=== PATIENT | male | born 1970 | race Caucasian/White ===

== ENCOUNTER 2019-01-02 11:12 | Inpatient (IN) | payer OTHER ==
[~2019-01-02 11:12] MED LIST: Buffered Lidocaine 1% SYRIN* 1 ML/SYRINGE INTRADERM ONE; Dexamethasone IV* 4 MG/ML 1 ML (4 MG) IV SLOW PU ONE; Famotidine IV* 10 MG/ML 2 ML (20 mg) IV ONE; Gabapentin CAP(*) 300 MG PO ONE; Lactated Ringers 1000 ML Bag* 1,000 ML IV SCH; celeCOXIB CAP* 200 MG PO ONE
--- OUTSIDE RECORDS SUMMARY | 2019-01-02 11:16 | XMS REPORT | Continuity of Care Document ---
:1970 External Reference #:[id number] Author Name Jovanna Prajapati Care Team Providers Name Role Phone Ratna Naik MD Primary Care Physician Unavailable Payers Date Identification Numbers Payment Provider Subscriber Policy Number: [id number] [employer] Name: [id number] [address] PayID: [id number] [place] [address] Problems Active Problems Provider Date Carcinoma of colon Ratna Naik MD Onset: 12/21/2018 Family History Date Family Member(s) Observation Comments General Lupus General Multiple Sclerosis (MS) General Cancer General Kidney Disease Social History Type Date Description Comments Sex Unknown Marital Status 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 ETOH Use Currently consumes 14 drinks per week alcohol Tobacco Use Start: Unknown End: Patient is a former Unknown smoker Recreational Drug Use Denies Drug Use Smoking Status Reviewed: 12/28/18 Patient is a former smoker Exercise Type/Frequency Exercises regularly Allergies, Adverse Reactions, Alerts Active Allergies Reaction Severity Comments Date NKDA 08/26/2018 MSG 12/27/2018 Sulphites 12/27/2018 Vital Signs Date Vital Result Comment 12/28/2018 1:12pm Height 70 inches 5'10" Weight 155.00 lb Heart Rate 76 /min BP Systolic 124 mmHg BP Diastolic 74 mmHg Respiratory Rate 16 /min Body Temperature 98.7 F BMI (Body Mass Index) 22.2 kg/m2 08/26/2018 1:22pm Weight 160.50 lb Heart Rate 73 /min BP Systolic 111 mmHg BP Diastolic 70 mmHg Body Temperature 97.4 F O2 % BldC Oximetry 100 % Results Test Date Facility Test Result H/L Range Note Laboratory test 12/20/2018 [facility] Surgical SEE RESULT 1 , [address] [place] [address] [phone] CBC Auto Diff 08/26/2018 [facility] White Blood 9.3 10^3/uL N 3.5-10.[address] [place] [address] [phone] Red Blood Count 4.47 10^6/uL N 4.00-5.40 Hemoglobin 12.9 g/dL Low 14.0-18.0 Hematocrit 39 % Low 42-52 Mean Corpuscular Volume 88 fL N 80-94 Mean Corpuscular Hemoglobin 29 pg N 27-31 Mean Corpuscular HGB Conc 33 g/dL N 31-36 Red Cell Distribution Width 14 % N 10.5-15 Platelet Count 340 10^3/uL N 150-450 Mean Platelet Volume 9.3 fL N 7.4-10.4 Abs Neutrophils 5.5 10^3/uL N 1.5-7.7 Abs Lymphocytes 2.8 10^3/uL N 1.0-4.8 Abs Monocytes 0.7 10^3/uL N 0-0.8 Abs Eosinophils 0.2 10^3/uL N 0-0.6 Abs Basophils 0.1 10^3/uL N 0-0.2 Abs Nucleated RBC 0 10^3/uL Granulocyte % 59.6 % Lymphocyte % 29.9 % Monocyte % 7.6 % Eosinophil % 1.8 % Basophil % 1.1 % Nucleated Red Blood Cells % 0.1 Comp Metabolic Panel 08/26/2018 [facility] Sodium 138 mmol/L N 135-[address] [place] [address] [phone] Potassium 4.4 mmol/L N 3.5-5.0 Chloride 104 mmol/L N 101-111 Co2 Carbon Dioxide 28 mmol/L N 22-32 Anion Gap 6 mmol/L N 2-11 Glucose 92 mg/dL N 70-100 Blood Urea Nitrogen 15 mg/dL N 6-24 Creatinine 0.86 mg/dL N 0.67-1.17 BUN/Creatinine Ratio 17.4 N 8-20 Calcium 9.7 mg/dL N 8.6-10.3 Total Protein 6.7 g/dL N 6.4-8.9 Albumin 4.4 g/dL N 3.2-5.2 Globulin 2.3 g/dL N 2-4 Albumin/Globulin Ratio 1.9 N 1-3 Total Bilirubin 0.30 mg/dL N 0.2-1.0 Alkaline Phosphatase 49 U/L N 34-104 Alt 17 U/L N 7-52 Ast 30 U/L N 13-39 Egfr Non- 95.7 >60 Egfr 115.8 >60 3 1 STAT [id number] SEE RESULT BELOW Name: LELE LINTON : [address]: Kel Juarez DO Acct: [id number] Unit: [id number] AGE: 48 Location: [facility] Re12/20/18 SEX: M Status: DEP REF SPEC: [id number] ESTHER: 12/20/18- SUBM DR: Kel Juarez DO REQ: [id number] RECD: 12/20/18-1233 STATUS: KARYN WASHINGTON DR: Ratna Naik MD _ ORDERED: LEVEL 4, IMMUNO-FIRST, IMMUNO-ADDL/4 COMMENTS: STAT [id number] ADDENDUM Immunohistochemical stains, with appropriately reacting controls, were performed with the following results: MLH-1 intact PMS-2 intact MSH-2 intact MSH-6 intact BRAF negative There is no evidence of mismatch repair protein deficiency or BRAF overexpression. 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 -- Carcinoma represents at least intramucosal carcinoma. -- Correlation with clinical and colonoscopic findings is recommended. Comment: Immunochemical stains for mismatch repair proteins and Braf are pending and will be reported in an addendum. CONTINUED ON NEXT PAGE DEPARTMENT OF PATHOLOGY, [address] [place] [address] Alan Villareal M.D. Director [facility] # [id number] RUN DATE: 12/22/18 [facility] LAB LIVE PAGE 2 Patient: LELE LINTON [id number] (Continued) GROSS DESCRIPTION (Continued) GROSS DESCRIPTION The specimen is received in formalin labeled, Biopsy Sigmoid Colon Mass at 30 cm, and consists of a 0.7 x 0.7 by up to 0.2 cm aggregate of olivas-pink irregular soft tissue fragments which is submitted entirely in one cassette. Signed by and Reported on: Alan Villareal MD 04/03 0938 END OF REPORT DEPARTMENT OF PATHOLOGY, [address] [place] [address] Alan Villareal M.D. Director [facility] # [id number] 3 Because ethnic data is not always readily available, this report includes an eGFR for both -Americans and non- Americans. The National Kidney Disease Education Program (NKDEP) does not endorse the use of the MDRD equation for patients that are not between the ages of 18 and 70, are , have extremes of body size, muscle mass, or nutritional status, or are non- or non-. According to the National Kidney Foundation, irrespective of diagnosis, the stage of the disease is based on the level of kidney function: Stage Description GFR(mL/min/1.73 m(2)) 1 Kidney damage with normal or decreased GFR 90 2 Kidney damage with mild decrease in GFR 60-89 3 Moderate decrease in GFR 30-59 4 Severe decrease in GFR 15-29 5 Kidney failure <15 (or dialysis) Procedures Date Code Description Status 12/20/2018 18880034 Colonoscopy Completed Encounters Type Date Location Provider Dx Diagnosis Office Visit 08/26/2018 [employer] Internal Ratna Naik MD K62.5 Hemorrhage of anus 1:20p Medicine and rectum A63.0 Anogenital (venereal) warts Plan of Treatment 08/26/2018 - Ratna Naik MDK62.5 Hemorrhage of anus and rectumReferral:Glenn Thorne MD, VrrcawjezociahbvR64.0 Anogenital (venereal) wartsReferral: Elva Huitron MD, Dermatology
[2019-01-02] MEDS ORDERED: Dexamethasone IV* 4 MG/ML 1 ML (4 MG) ONE (11:32)
[2019-01-02] MEDS ORDERED: celeCOXIB CAP* 200 MG ONE (11:32)
[2019-01-02] MEDS ORDERED: Famotidine IV* 10 MG/ML 2 ML (20 mg) ONE (11:32)
[2019-01-02] MEDS ORDERED: Gabapentin CAP(*) 300 MG ONE (11:32)
[2019-01-02] MEDS ORDERED: ceFOXitin 2 GM IVPREMIX* 2 GM/50 ML BAG ONE (11:32)
[2019-01-02] MEDS ORDERED: fentaNYL* 50 MCG/ML 5 ML VIAL (250 MCG VIAL) ONE (12:46)
[2019-01-02] MEDS ORDERED: Atracurium* 10 MG/ML 10 ML VIAL ONE (12:46)
[2019-01-02] MEDS ORDERED: Midazolam* 1 MG/ML 5 ML VIAL (5 MG) ONE (12:46)
[2019-01-02] MEDS ORDERED: Ketorolac INJ* 30 MG/ML 1 ML VIAL ONE ×2 (12:47→18:21)
[2019-01-02] MEDS ORDERED: Propofol* 10 MG/ML 20 ML BTL ONE (12:47)
[2019-01-02] MEDS ORDERED: Lidocaine 2% PF * 5 ML VIAL ONE (12:47)
[2019-01-02] MEDS ORDERED: Ondansetron INJ* 2 MG/ML VIAL ONE (12:47)
[2019-01-02] MEDS ORDERED: Bupivacaine 0.5%* 50 ML VIAL ONE (14:14)
[2019-01-02] MEDS ORDERED: HYDROmorphone INJ1* 1 MG/ML SYRINGE IV PRN (14:29)
[2019-01-02] MEDS ORDERED: Ondansetron INJ* 2 MG/ML VIAL IV PRN ×2 (14:29→16:24)
[2019-01-02] MEDS ORDERED: fentaNYL* 50 MCG/ML 2 ML VIAL (100 MCG VIAL) IV PRN (14:29)
[2019-01-02] MEDS ORDERED: Naloxone* 0.4 MG/ML 1 ML VIAL IV PRN (14:29)
[2019-01-02] MEDS ORDERED: DiMENhydriNATE IV* 50 MG/ML VIAL IV PUSH PRN (14:29)
[2019-01-02] MEDS ORDERED: Scopolamine 1.5 mg* PATCH TRANSDERM PRN (14:29)
[2019-01-02] MEDS ORDERED: fentaNYL* 50 MCG/ML 2 ML VIAL (100 MCG VIAL) ONE (14:51)
[2019-01-02] MEDS ORDERED: Bacitracin OINTMENT* 0.5% 0.5 oz TUBE ONE (16:06)
[2019-01-02] MEDS ORDERED: Acetaminophen TAB* 325 MG PO PRN (16:24)
[2019-01-02] MEDS ORDERED: oxyCODONE/Acetamin 5/325 MG* TAB PO PRN (16:24)
[2019-01-02] MEDS ORDERED: HYDROmorphone INJ1* 1 MG/ML SYRINGE ONE (18:20)
--- NOTE | 2019-01-02 20:59 | OP ---
DATE OF OPERATION: 01/02/19 - ROOM #331 DATE OF : 74 SURGEON: Christopher Ag MD. PRE-OP DIAGNOSIS: Sigmoid colon cancer. POST-OP DIAGNOSIS: Sigmoid colon cancer. OPERATIVE PROCEDURE: Laparoscopic hand assisted sigmoid colectomy with low anterior anastomosis. INDICATION FOR PROCEDURE: History of colon cancer of the sigmoid. Risks of surgery included, but not limited to, bleeding, infection, injury to intraabdominal contents including the bowel, the ureter, anastomotic leak, MO, pneumonia, PE, arrhythmia, even explained to the patient, who seemed to understand and agreed to the procedure, and all questions were answered. DESCRIPTION OF PROCEDURE: The patient was taken to the operating room and placed supine. Preoperative antibiotics had been given. After the successful induction of general endotracheal anesthesia, a Chris catheter was placed. The abdomen was prepped and draped in sterile fashion. He had been placed on a split table with the legs in a V position. A midline incision was made and carried down through the subcutaneous tissue. The peritoneal cavity was entered. A hand port was placed through the incision and a hand port gel top was applied. My left hand was placed through the hand report. Bowel was protected as a 12 mm suprapubic and right lower quadrant trocar was placed bluntly. Pneumoperitoneum was achieved at 15 mmHg. The abdomen was scanned. There was no obvious injury from entry or trocar placement. The sigmoid colon was palpated and obvious sigmoid tumor was noted. Colon was mobilized medially along the lateral peritoneal reflection. The ureter was identified and avoided. The bowel was divided at rectosigmoid junction using a stapler. The mesentery was taken back towards the inferior mesenteric artery and the proximal bowel was divided proximal to the palpable tumor. That mesentery was taken down towards the inferior mesenteric artery base. Bulky, mavis, and firm disease was noted traveling down the inferior mesenteric artery. This was divided using a stapler. The specimen was completely removed. The proximal colon was brought out and using a 25 mm EEA stapler, the anvil was placed in the proximal bowel and brought down into the pelvis and stapled with a 25 mm EEA staple. Anastomosis was performed. The pelvis was filled with saline. The proximal bowel was clamped with my fingers gently and a rigid sigmoidoscope placed 3 to 4 cm within the rectum. Insufflated the distal colon. There was no air leak around the anastomosis. The air was released from the rectum. The saline was aspirated out of the pelvis. The omentum was placed over the anastomosis. EBL was minimal for the case, less than 20 cc. I was able to palpate the liver. Few hard nodules were noted in the left lobe of the liver. Some bulky, periaortic mavis disease was palpable as well. The rest of the proximal colon felt normal, I could not appreciate any other mass. Scan of the abdomen showed no other obvious abnormality. The trocars were removed and pneumoperitoneum was released from the abdomen and the hand port was removed. The fascia was closed with a running #1 PDS suture. Marcaine was placed in the muscle and fascia around this closed incision. The wound was irrigated. The skin was closed with Monocryl at all sites and glue was applied to the skin. He tolerated the procedure well. He was extubated and taken to recovery room in stable condition. [id number]/CPS #: [id number] MTDD
[2019-01-02] MEDS: Heparin VIAL(*) 5000 UNITS/ML VIAL (FIVE THOUSAND) SUBCUT SCH (22:29)
[2019-01-03] MEDS: Lactated Ringers 1000 ML Bag* 1,000 ML IV SCH ×2 (04:23→14:15)
[2019-01-03] MEDS: HYDROmorphone INJ1* 1 MG/ML SYRINGE IV SLOW PU PRN ×3 (04:23→21:02)
[2019-01-03] MEDS: Ketorolac INJ* 30 MG/ML 1 ML VIAL IV PRN ×2 (04:24→21:05)
[2019-01-03 05:10] LABS: ABS Monocytes 1.3 10^3/ul (0-0.8); ABS Neutrophils 11.5 10^3/ul (1.5-7.7); Hematocrit 35 % (42-52); Hemoglobin 11.4 g/dL (14.0-18.0); Lymphocyte % 13.6 %; Mean Corpuscular HGB Conc 32 g/dL (31-36); Mean Corpuscular Hemoglobin 28 pg (27-31); Mean Corpuscular Volume 87 fL (80-94); Mean Platelet Volume 8.6 fL (7.4-10.4); Platelet Count 306 10^3/uL (150-450); Red Blood Count 4.07 10^6 /uL (4.18-5.48); Red Cell Distribution Width 14 % (10.5-15); White Blood Count 14.8 10^3/uL (3.5-10.8)
[2019-01-03 05:26] LABS: BUN/Creatinine Ratio 11.9 (8-20); Calcium 8.7 mg/dL (8.6-10.3); EGFR Non-African American 98.4 (>60); Potassium 4.3 mmol/L (3.5-5.0)
[2019-01-03] MEDS: Heparin VIAL(*) 5000 UNITS/ML VIAL (FIVE THOUSAND) SUBCUT SCH ×3 (07:05→21:14)
--- NOTE | 2019-01-03 13:02 | PN ---
<Maurice Nortno - Last Filed: 01/03/19 13:27> Progress Note - Progress Note Date of Service: 01/03/19 Note: S: Pt is POD#1 c/o some mild soreness surrounding the midline incision site; he has not had any pain medication since early this morning. He says he felt awkward asking his nurse for pain medication and also has some concerns about becoming dependent on opiates. He has not produced any flatus and says that he had some initial urinary leakage after having the catheter removed but has since had good urinary production and flow. He has been ambulating around the unit on his own. He denies fever, chest pain, shortness of breath, nausea or vomiting. O: Selected Entries 01/02/19 01/02/19 01/03/19 18:45 23:43 11:14 Temperature 98.3 F 100.2 F 97.5 F Pulse Rate 64 63 58 Respiratory 18 18 18 Rate Blood Pressure 138/94 121/78 130/86 (mmHg) O2 Sat by Pulse 100 99 100 Oximetry Patient on Room Yes Yes Air Intake & Output 01/01/19 01/02/19 01/03/19 01/04/19 06:59 06:59 06:59 06:59 Intake Total 2665 Output Total 1100 Balance 1565 Weight 156 lb 6.4 oz Intake: IV Fluids 2425 LR 975 NS 50ML, Cefoxitin 2G 50 lr 1400 Oral 240 Output: Urine 900 Chris 200 Other: # Bowel Movements 0 Exam: General: lying in bed, no acute distress. Heart: normal S1/S2 Lungs: clear & equal bilat, no wheezes, rales, rhonchi Abd: Suture sites appear clean, no signs of infection. Abd appears non- distended, + bowel sounds, tympanitic on right side. Tenderness on palpation without rigidity or guarding. A: POD #1 s/p sigmoid colectomy with low anastomosis; improving P: Continue clear liquid diet pain medication as needed Continue to ambulate as tolerated and use incentive spirometry <Pb Dempsey - Last Filed: 01/03/19 15:05> Progress Note - Progress Note Note: Patient seen with PA student, Sheldon Norton. I agree with the above note. Patient discussed w/ Dr. Ag. Labs noted: Laboratory Tests 01/03/19 04:56 WBC 14.8 H Hgb 11.4 L Hct 35 L Will repeat labs 01/04.
[2019-01-04] MEDS: HYDROmorphone INJ1* 1 MG/ML SYRINGE IV SLOW PU PRN ×2 (00:34→05:13)
[2019-01-04] MEDS: Lactated Ringers 1000 ML Bag* 1,000 ML IV SCH (00:36)
[2019-01-04] MEDS: Heparin VIAL(*) 5000 UNITS/ML VIAL (FIVE THOUSAND) SUBCUT SCH ×2 (05:11→14:39)
[2019-01-04] MEDS: Ketorolac INJ* 30 MG/ML 1 ML VIAL IV PRN (05:14)
[2019-01-04 06:30] LABS: ABS Eosinophils 0.3 10^3/ul (0-0.6); ABS Lymphocytes 2.6 10^3/ul (1.0-4.8); ABS Monocytes 0.8 10^3/ul (0-0.8); ABS Neutrophils 3.1 10^3/ul (1.5-7.7); Eosinophil % 4.5 %; Hematocrit 32 % (42-52); Hemoglobin 10.7 g/dL (14.0-18.0); Lymphocyte % 37.9 %; Mean Corpuscular HGB Conc 33 g/dL (31-36); Mean Corpuscular Hemoglobin 29 pg (27-31); Mean Corpuscular Volume 88 fL (80-94); Mean Platelet Volume 8.7 fL (7.4-10.4); Nucleated Red Blood Cells % 0.1; Platelet Count 283 10^3/uL (150-450); Red Blood Count 3.66 10^6 /uL (4.18-5.48); Red Cell Distribution Width 14 % (10.5-15); White Blood Count 6.9 10^3/uL (3.5-10.8)
[2019-01-04 06:42] LABS: BUN/Creatinine Ratio 12.3 (8-20); Calcium 8.5 mg/dL (8.6-10.3); EGFR Non-African American 115.7 (>60); Potassium 4.1 mmol/L (3.5-5.0)
--- NOTE | 2019-01-04 09:37 | PN ---
Progress Note - Progress Note Date of Service: 01/04/19 SOAP: Subjective: [] passing flatus, feeling "great", pod #2 Objective: [] Laboratory Last Values WBC 6.9 10^3/uL (3.5-10.8) 01/04/19 05:59 RBC 3.66 10^6 /uL (4.18-5.48) L 01/04/19 05:59 Hgb 10.7 g/dL (14.0-18.0) L 01/04/19 05:59 Hct 32 % (42-52) L 01/04/19 05:59 MCV 88 fL (80-94) 01/04/19 05:59 MCH 29 pg (27-31) 01/04/19 05:59 MCHC 33 g/dL (31-36) 01/04/19 05:59 RDW 14 % (10.5-15) 01/04/19 05:59 Plt Count 283 10^3/uL (150-450) 01/04/19 05:59 MPV 8.7 fL (7.4-10.4) 01/04/19 05:59 Neut % (Auto) 45.1 % 01/04/19 05:59 Lymph % (Auto) 37.9 % 01/04/19 05:59 [place] % (Auto) 11.8 % 01/04/19 05:59 Eos % (Auto) 4.5 % 01/04/19 05:59 Baso % (Auto) 0.7 % 01/04/19 05:59 Absolute Neuts (auto) 3.1 10^3/ul (1.5-7.7) 01/04/19 05:59 Absolute Lymphs (auto) 2.6 10^3/ul (1.0-4.8) 01/04/19 05:59 Absolute Monos (auto) 0.8 10^3/ul (0-0.8) 01/04/19 05:59 Absolute Eos (auto) 0.3 10^3/ul (0-0.6) 01/04/19 05:59 Absolute Basos (auto) 0.0 10^3/ul (0-0.2) 01/04/19 05:59 Absolute Nucleated RBC 0.0 10^3/ul 01/04/19 05:59 Nucleated RBC % 0.1 01/04/19 05:59 Sodium 139 mmol/L (135-145) 01/04/19 05:59 Potassium 4.1 mmol/L (3.5-5.0) 01/04/19 05:59 Chloride 105 mmol/L (101-111) 01/04/19 05:59 Carbon Dioxide 30 mmol/L (22-32) 01/04/19 05:59 Anion Gap 4 mmol/L (2-11) 01/04/19 05:59 BUN 9 mg/dL (6-24) 01/04/19 05:59 Creatinine 0.73 mg/dL (0.67-1.17) 01/04/19 05:59 Est GFR ( Amer) 140.0 (>60) 01/04/19 05:59 Est GFR (Non-Af Amer) 115.7 (>60) 01/04/19 05:59 BUN/Creatinine Ratio 12.3 (8-20) 01/04/19 05:59 Glucose 97 mg/dL (70-100) 01/04/19 05:59 Calcium 8.5 mg/dL (8.6-10.3) L 01/04/19 05:59 Temp Pulse Resp BP Pulse Ox 98.2 F 69 18 108/81 99 01/04/19 07:11 01/04/19 07:11 01/04/19 07:45 01/04/19 07:11 01/04/19 07:44 incisions CDI, absomen soft Assessment: []stable, doing well pod#2 Plan: []advance diet, dc to home after dinner, f/u office next week miralax daily, await path
[2019-01-04] MEDS ORDERED: Polyethylene Glycol 3350* 17 GM PACKET PO SCH (10:00)
[2019-01-04 11:30] VITALS: BP 101/76
--- NOTE | 2019-01-04 16:36 | DS ---
CC: Dr. Ratna Naik; Dr. Kel Juarez; Dr. Glen Beavers* DISCHARGE SUMMARY: DATE OF ADMISSION: 01/02/19 DATE OF DISCHARGE: 01/04/19 ATTENDING SURGEON: Dr. Christopher Ag* (BRYCE Pressley dictating). HOSPITAL COURSE: Please refer to admission history and physical and operative note for details. The patient was taken to the operating room on 01/02/19, at which time he underwent laparoscopic-assisted sigmoid colectomy for carcinoma ( pathology is still pending). The patient has done quite well both in terms of pain control as well as gradual advancement of diet. He has been passing flatus. He has been afebrile with stable vital signs (see separate progress note from this morning from Dr. Ag). He will resume his usual home medications and states that he does have some hydrocodone/APAP 5/500 at home p.r.n. for stronger pain. He will gradually advance diet to low residue, which he will maintain for at least the next 3 to 5 days. He has an appointment in our office on 01/11/19. Wound care and activity instructions were also reviewed. The patient is discharged to home in good condition. BRYCE PRESSLEY [id number]/[facility] #: [id number] MTDD
== END 2019-01-04 15:32 | disposition home or self-care (01) | DRG 221 ==
LOC: AA 11:12 → EDSTATUS 13:00 → SSU 17:46
PROVIDERS: ADMIT Surgery; ATTEND Surgery
PROC: 0DTN0ZZ Resection of Sigmoid Colon, Open Approach (ICD-10-PCS; principal; 2019-01-02 13:00)
DX: C18.7 Malignant neoplasm of sigmoid colon (principal); A63.0 Anogenital (venereal) warts; F17.210 Nicotine dependence, cigarettes, uncomplicated; K59.00 Constipation, unspecified; Z72.89 Other problems related to lifestyle; Z88.8 Allergy status to other drugs, medicaments and biological substances
CPT/HCPCS: 36415; 80048; 81275; 85025; 88309; A9270-GY; J0694; J1100; J1170; J1644; J1885; J2250; J2405; J2704; J3010; J3490

== ENCOUNTER 2019-01-23 06:59 | Day surgery (SDC) | payer OTHER ==
[~2019-01-23 06:59] MED LIST changes: -Dexamethasone IV* 4 MG/ML 1 ML (4 MG) IV SLOW PU ONE; -Famotidine IV* 10 MG/ML 2 ML (20 mg) IV ONE; -Gabapentin CAP(*) 300 MG PO ONE; -celeCOXIB CAP* 200 MG PO ONE
[2019-01-23] MEDS ORDERED: ceFAZolin 2 GM PREMIX in ORs 2 GM/50 ML BAG ONE (07:16)
[2019-01-23] MEDS ORDERED: Buffered Lidocaine 1% SYRIN* 1 ML/SYRINGE INTRADERM ONE (07:16)
[2019-01-23] MEDS ORDERED: fentaNYL* 50 MCG/ML 2 ML VIAL (100 MCG VIAL) ONE ×2 (07:56→08:49)
[2019-01-23] MEDS ORDERED: Midazolam* 1 MG/ML 2 ML VIAL (2 MG) ONE (08:01)
[2019-01-23] MEDS ORDERED: oxyCODONE/Acetamin 5/325 MG* TAB PO PRN (08:13)
[2019-01-23] MEDS ORDERED: Ondansetron INJ* 2 MG/ML VIAL IV PRN (08:13)
[2019-01-23] MEDS ORDERED: Ketorolac INJ* 30 MG/ML 1 ML VIAL IV PRN (08:13)
[2019-01-23] MEDS ORDERED: Naloxone* 0.4 MG/ML 1 ML VIAL IV PRN (08:13)
[2019-01-23] MEDS ORDERED: fentaNYL* 50 MCG/ML 2 ML VIAL (100 MCG VIAL) IV PRN (08:13)
[2019-01-23] MEDS ORDERED: Acetaminophen TAB* 325 MG PO PRN (08:13)
[2019-01-23] MEDS ORDERED: Bupivacaine 0.25% SDV PF* 10 ML VIAL INJ ONE (08:20)
[2019-01-23] MEDS ORDERED: Propofol* 10 MG/ML 20 ML BTL ONE (08:31)
[2019-01-23 10:14] VITALS: BP 105/78
--- NOTE | 2019-01-23 10:37 | OP ---
DATE OF OPERATION: 01/23/19 - [facility] DATE OF : 74 SURGEON: Christopher Ag MD. PRE-OPERATIVE DIAGNOSIS: Metastatic colon cancer. POST-OPERATIVE DIAGNOSIS: Metastatic colon cancer. OPERATIVE PROCEDURE: Placement of left subclavian approach power port placement. INDICATIONS FOR PROCEDURE: Requiring access for treatment of metastatic colon cancer. Risks include, but not limited to, bleeding, infection, injury to the the heart, and pneumothorax. I explained to the patient, who seemed to understand and agreed to the procedure, and all questions were answered. DESCRIPTION OF PROCEDURE: The patient was taken to the operating room and placed supine. Preoperative antibiotics were given. After the successful induction of sedation, the left chest was shaved, prepped, and draped in sterile fashion. Time-out was performed. Correct patient and correct procedure was identified. The patient was placed in Trendelenburg position. Subclavian area was anesthetized with Marcaine, a needle was placed in the subclavian vein on the left, and using Seldinger technique, a wire was passed into the vein. The needle was removed. Fluoroscopy confirmed the wire down towards the superior vena cava right atrium region. The tract was dilated. A sheath was passed over the wire and the wire was removed. The port catheter was passed through the sheath, the sheath was removed. The catheter was then tunneled under the skin to a subcutaneous pocket made lower on the chest and connected to the Mediport, which was aspirated of any air and easily aspirated blood and then flushed with heparinized saline. The skin was closed in layers using Monocryl and then glue. He was taken out of Trendelenburg position. Fluoroscopy confirmed good placement of the port. He tolerated the procedure well. He was taken to the recovery, where a chest x-ray was ordered. [id number]/[facility] #: [id number] MTDD
== END 2019-01-23 10:23 | disposition home or self-care (01) ==
LOC: OR 06:59
PROVIDERS: ATTEND Surgery
DX: C18.9 Malignant neoplasm of colon, unspecified (principal); C78.7 Secondary malignant neoplasm of liver and intrahepatic bile duct; C78.00 Secondary malignant neoplasm of unspecified lung; Z72.0 Tobacco use; F41.9 Anxiety disorder, unspecified
CPT/HCPCS: 71045; 76000; C1788; J0690; J1642; J2250; J2704; J3010; J3490

== ENCOUNTER 2019-03-06 07:25 | Day surgery (SDC) | payer OTHER ==
[~2019-03-06 07:25] MED LIST changes: +Famotidine IV* 10 MG/ML 2 ML (20 mg) IV ONE
[2019-03-06] MEDS ORDERED: Famotidine IV* 10 MG/ML 2 ML (20 mg) ONE (08:05)
[2019-03-06] MEDS ORDERED: Buffered Lidocaine 1% SYRIN* 1 ML/SYRINGE INTRADERM ONE (08:05)
[2019-03-06] MEDS ORDERED: ceFAZolin 2 GM in NS PREMIX(*) 2 GM/100 ML BAG IVPB ONE (08:06)
[2019-03-06] MEDS ORDERED: Ondansetron INJ* 2 MG/ML VIAL ONE (08:19)
[2019-03-06] MEDS ORDERED: Propofol* 10 MG/ML 20 ML BTL ONE ×2 (08:19→09:35)
[2019-03-06] MEDS ORDERED: fentaNYL* 50 MCG/ML 2 ML VIAL (100 MCG VIAL) ONE (08:19)
[2019-03-06] MEDS ORDERED: Lidocaine 2% PF * 5 ML VIAL ONE (08:19)
[2019-03-06] MEDS ORDERED: Dexamethasone IV* 4 MG/ML 1 ML (4 MG) ONE (08:19)
[2019-03-06] MEDS ORDERED: Midazolam* 1 MG/ML 10 ML VIAL (10 MG) ONE (08:19)
[2019-03-06] MEDS ORDERED: Bupivacaine 0.25% SDV PF* 10 ML VIAL INJ ONE (08:48)
[2019-03-06] MEDS ORDERED: KETAMINE HCL* 50 MG/ML 10 ML VIAL ONE (09:07)
[2019-03-06] MEDS ORDERED: Ketorolac INJ* 30 MG/ML 1 ML VIAL ONE (09:35)
[2019-03-06] MEDS ORDERED: fentaNYL* 50 MCG/ML 2 ML VIAL (100 MCG VIAL) IV PRN (10:18)
[2019-03-06] MEDS ORDERED: Naloxone* 0.4 MG/ML 1 ML VIAL IV PRN (10:18)
[2019-03-06] MEDS ORDERED: oxyCODONE/Acetamin 5/325 MG* TAB PO PRN (10:18)
[2019-03-06] MEDS ORDERED: Ondansetron INJ* 2 MG/ML VIAL IV PRN (10:18)
[2019-03-06 11:35] VITALS: BP 99/65
--- NOTE | 2019-03-06 12:44 | OP ---
OPERATIVE REPORT: DATE OF OPERATION: 03/06/19 DATE OF : 74 PRE-OP DIAGNOSIS: Malfunctioning left port with an impingement. POST-OP DIAGNOSIS: Malfunctioning left port with an impingement. OPERATIVE PROCEDURE: Removal of left port, placement of right port. DICTATION ENDS HERE [id number]/[facility] #: [id number] MTDD
--- NOTE | 2019-03-06 12:44 | OP ---
DATE OF OPERATION: 03/06/19 - [facility] DATE OF : 74 SURGEON: Christopher Ag MD. QUILL SKINNER: None. PRE-OP DIAGNOSIS: Dysfunction of left chest PowerPort requiring removal. POST-OP DIAGNOSIS: Dysfunction of left chest PowerPort requiring removal. OPERATIVE PROCEDURE: Removal of left chest PowerPort, placement of right chest PowerPort. DESCRIPTION OF PROCEDURE: The patient was brought to the operating room and placed supine. Preoperative antibiotics were given. Sedation was given by the anesthesiologist. Both sides of the chest were prepped and draped in sterile fashion. Time-out was performed indicating correct patient and correct procedure, indicating port to be removed and decide for the new port placement. Skin was anesthetized over the old port and incision was made, carried down to the subcutaneous tissue, and the old port was removed from the subcutaneous pocket and the catheter was completely removed intact from the vein. EBL was minimal. Hemostasis was intact. The incision site was closed with a 3-0 Monocryl. Glue was applied. Attention was then turned to the right side of the chest. The skin was anesthetized with lidocaine plain. A needle was placed in the subclavian vein in a more lateral position in an attempt to avoid any impingement between the clavicle and the rib. Using Seldinger technique, a wire was passed through the needle. The needle was removed. The wire was noted to be in good position in the vena cava by fluoroscopy. The tract was dilated. The split sheath was placed over the wire. The wire was removed. A catheter was placed through the split sheath. The split sheath was removed. A catheter was tunneled under the skin to a port pocket made using local anesthesia. The catheter was connected to the PowerPort, which had a shunt of aspirated blood easily and flushed with heparinized saline. The pocket was closed in layers using 3-0 Monocryl. Glue was applied to the skin. He tolerated the procedure well. Fluoroscopy revealed good placement of the catheter. Chest x-ray will be ordered in recovery. [id number]/[facility] #: [id number] MTDD
== END 2019-03-06 12:20 | disposition home or self-care (01) ==
LOC: OR 07:25
PROVIDERS: ATTEND Surgery
DX: T82.898A Other specified complication of vascular prosthetic devices, implants and grafts, initial encounter (principal); C18.7 Malignant neoplasm of sigmoid colon; R91.1 Solitary pulmonary nodule; K76.9 Liver disease, unspecified
CPT/HCPCS: 71045; 76000; C1788; J0690; J1100; J1642; J1885; J2250; J2405; J2704; J3010; J3490